=== PATIENT | female | born 1980 ===

== ENCOUNTER 2021-09-27 10:45 | Inpatient (IN) | payer OTHER ==
[~2021-09-27] VITALS: Ht 170.2 cm; Wt 104.3 kg
== END 2021-10-08 20:22 | disposition home or self-care (01) | DRG 742 ==
LOC: SURH 09-28 09:36 → O/R 09-28 09:36 → SURH 09-28 10:45
PROVIDERS: ADMIT Specialist; ATTEND Specialist
PROC: 0UT50ZZ Resection of Right Fallopian Tube, Open Approach (ICD-10-PCS; 2021-09-28)
PROC: 0UT00ZZ Resection of Right Ovary, Open Approach (ICD-10-PCS; 2021-09-28)
PROC: 0DNW0ZZ Release Peritoneum, Open Approach (ICD-10-PCS; 2021-09-28)
PROC: 0TN70ZZ Release Left Ureter, Open Approach (ICD-10-PCS; 2021-09-28)
PROC: 0TN60ZZ Release Right Ureter, Open Approach (ICD-10-PCS; 2021-09-28)
PROC: 0DTU0ZZ Resection of Omentum, Open Approach (ICD-10-PCS; 2021-09-28)
PROC: 0UT90ZZ Resection of Uterus, Open Approach (ICD-10-PCS; principal; 2021-09-28 16:00)
PROC: BW21YZZ Computerized Tomography (CT Scan) of Abdomen and Pelvis using Other Contrast (ICD-10-PCS; 2021-10-05)
DX: N72 Inflammatory disease of cervix uteri (principal); K91.89 Other postprocedural complications and disorders of digestive system; K56.7 Ileus, unspecified; Z20.822 Contact with and (suspected) exposure to COVID-19; N83.11 Corpus luteum cyst of right ovary